=== PATIENT | male | born 1975 | race Caucasian/White ===

== ENCOUNTER 2016-10-25 13:35 | Emergency (ER) | payer OTHER ==
[2016-10-25] MEDS ORDERED: CLONIDINE HCL 0.2 MG TABLET PO ONE (14:05)
--- NOTE | 2016-10-25 14:06 | ER Document Report ---
ED Medical Screen (RME) - General Stated Complaint: BLOOD PRESSURE PROBLEM Notes: Patient is a 39-year-old male who was referred over by Felisha angeles for elevated blood pressure. patient does not have a h/o htn, not taking any daily medications for it 211/117 in triage headache, has been present for 4 days alert and oriented x3. conversing without any limitations I have greeted and performed a rapid initial assessment of this patient. A comprehensive ED assessment and evaluation of the patient, analysis of test results and completion of the medical decision making process will be conducted by additional ED providers. - Related Data Allergies/Adverse Reactions: No Known Allergies Allergy (Unverified 10/25/16 14:00)
[2016-10-25 15:31] LABS: ABSOLUTE BASOPHILS # (AUTO) 0.1 10^3/uL (0.0-0.2); ABSOLUTE EOSINOPHILS # (AUTO) 0.1 10^3/uL (0.0-0.6); ABSOLUTE LYMPHOCYTES (AUTO) 2.2 10^3/uL (0.5-4.7); ABSOLUTE MONOCYTES (AUTO) 0.6 10^3/uL (0.1-1.4); ABSOLUTE NEUT (AUTO) 5.2 10^3/uL (1.7-8.2); BASOPHILS % (AUTO) 0.7 % (0-2); EOSINOPHILS % (AUTO) 1.6 % (0-6); HEMOGLOBIN 16.7 g/dL (13.5-17.0); HGB HCT DIFFERENCE 1.1; MEAN CORPUSCULAR HEMOGLOBIN 29.4 pg (27.0-33.4); MEAN CORPUSCULAR HGB CONC 34.1 g/dL (32.0-36.0); MEAN CORPUSCULAR VOLUME 86 fl (80-97); MONOCYTES % (AUTO) 7.6 % (3-13); RED BLOOD COUNT 5.68 10^6/uL (4.35-5.55); RED CELL DISTRIBUTION WIDTH 13.2 % (11.5-14.0); SEGMENTED NEUTROPHILS % (AUTO) 63.1 % (42-78); WHITE BLOOD COUNT 8.2 10^3/uL (4.0-10.5)
[2016-10-25 15:41] LABS: ALANINE AMINOTRANSFERASE 30 U/L (21-72); ALBUMIN 4.7 g/dL (3.5-5.0); ALKALINE PHOSPHATASE 49 U/L (38-126); ANION GAP 13 (5-19); ASPARTATE AMINO TRANSFERASE 19 U/L (17-59); BILIRUBIN,TOTAL 0.8 mg/dL (0.2-1.3); BLOOD UREA NITROGEN 19 mg/dL (7-20); CALCIUM 9.4 mg/dL (8.4-10.2); CARBON DIOXIDE 28 mmol/L (22-30); CHLORIDE 98 mmol/L (98-107); CREATININE RESULT 1.18 mg/dL (0.52-1.25); GLUCOSE 69 mg/dL (75-110); POTASSIUM 3.9 mmol/L (3.6-5.0); SODIUM 138.6 mmol/L (137-145); TOTAL PROTEIN 7.7 g/dL (6.3-8.2)
[2016-10-25] MEDS ORDERED: DIAZEPAM 5 MG TABLET PO ONE (18:52)
--- NOTE | 2016-10-25 19:13 | ER Document Report ---
ED General - General Chief Complaint: High Blood Pressure Stated Complaint: BLOOD PRESSURE PROBLEM TRAVEL OUTSIDE OF THE [place] IN LAST 30 DAYS: No - HPI Patient complains to provider of: elevated blood pressure headache Notes: Patient was seen today by one of the local nurse practitioners incision into the ER for further evaluation patient was found to have hypertension and headache. Patient states headache ongoing for the last 4 days pain in the back of his head and pain in front of his head. Patient states there is been diagnosed with hypertension the past. Patient states last time he has blood pressure check was in July. Denies any drug abuse smoking alcohol use. Patient otherwise denies any medical problems. Denies any weakness dizziness numbness photophobia nausea vomiting fevers chills - Related Data Allergies/Adverse Reactions: No Known Allergies Allergy (Unverified 10/25/16 14:00) Past Medical History - Social History Smoking Status: Never Smoker Chew tobacco use (# tins/day): No Frequency of alcohol use: None Drug Abuse: None Family History: Reviewed & Not Pertinent Patient has suicidal ideation: No Patient has homicidal ideation: No Renal/ Medical History: Denies: Hx Peritoneal Dialysis Review of Systems - Review of Systems Constitutional: Other - Hypertension EENT: No symptoms reported Cardiovascular: No symptoms reported Respiratory: No symptoms reported Gastrointestinal: No symptoms reported Genitourinary: No symptoms reported Male Genitourinary: No symptoms reported Musculoskeletal: No symptoms reported Skin: No symptoms reported Hematologic/Lymphatic: No symptoms reported Neurological/Psychological: Headaches -: Yes All other systems reviewed and negative Physical Exam - Vital signs Vitals: Temp Pulse Resp BP Pulse Ox 97.5 F 61 18 192/110 H 97 10/25/16 14:01 10/25/16 14:01 10/25/16 14:01 10/25/16 14:01 10/25/16 14:01 Interpretation: Normal - General General appearance: Appears well, Alert - HEENT Head: Normocephalic, Atraumatic Eyes: Normal Pupils: PERRL - Respiratory Respiratory status: No respiratory distress Chest status: Nontender Breath sounds: Normal Chest palpation: Normal - Cardiovascular Rhythm: Regular Heart sounds: Normal auscultation Murmur: No - Abdominal Inspection: Normal Distension: No distension Bowel sounds: Normal Tenderness: Nontender Organomegaly: No organomegaly - Back Back: Normal, Nontender - Extremities General upper extremity: Normal inspection, Nontender, Normal color, Normal ROM , Normal temperature General lower extremity: Normal inspection, Nontender, Normal color, Normal ROM , Normal temperature, Normal weight bearing. No: Ariadne's sign - Neurological Neuro grossly intact: Yes Cognition: Normal Orientation: AAOx4 Julissa Coma Scale Eye Opening: Spontaneous [place] Coma Scale Verbal: Oriented [place] Coma Scale Motor: Obeys Commands Julissa Coma Scale Total: 15 Speech: Normal Motor strength normal: LUE, RUE, LLE, RLE Sensory: Normal - Psychological Associated symptoms: Normal affect, Normal mood - Skin Skin Temperature: Warm Skin Moisture: Dry Skin Color: Normal Course - Re-evaluation Re-evalutation: 10/25/16 22:[address] is negative. More likely with the description of the patient' s headache is tension headache. Patient was given Valium. Patient blood pressure does still stay elevated there is no signs of acute and organ damage. Patient will be started on hydrochlorothiazide encouraged follow-up with his primary care physician that referred him to the ER - Vital Signs Vital signs: Temp Pulse Resp BP Pulse Ox 98.4 F 53 L 20 183/105 H 98 10/25/16 19:55 10/25/16 19:55 10/25/16 19:55 10/25/16 19:55 10/25/16 19:55 - Laboratory Result Diagrams: 10/25/16 15:08 10/25/16 15:08 Laboratory results interpreted by me: 10/25/16 10/25/16 15:08 15:08 RBC 5.68 H Glucose 69 L Discharge - Discharge Clinical Impression: Tension headache Hypertension Qualifiers: Hypertension type: essential hypertension Qualified Code(s): I10 - Essential ( primary) hypertension Condition: Good Disposition: HOME, SELF-CARE Instructions: Hydrochlorothiazide ([facility]), High Blood Pressure, Requiring Treatment ([facility]), Tension Headache ([facility]) Additional Instructions: Please take medication as prescribed. Return to the ER symptoms worsen. Prescriptions: Diazepam [Valium 5 mg Tablet] 5 mg PO QID #20 tablet Hydrochlorothiazide 12.5 mg PO DAILY #14 capsule Forms: Return to Work
[2016-10-25 20:52] VITALS: BP 183/105
== END 2016-10-25 19:58 | disposition home or self-care (01) ==
LOC: ER 13:35
DX: G44.209 Tension-type headache, unspecified, not intractable (principal); I10 Essential (primary) hypertension
CPT/HCPCS: 36415; 70450; 80053; 85025; 99284